=== PATIENT | male | born 1995 | race Two or more races ===

== ENCOUNTER 2016-10-09 05:26 | Emergency (ER) | payer SELFPAY ==
[~2016-10-09] VITALS: Ht 190.5 cm; Wt 115.0 kg
[2016-10-09 08:10] VITALS: BP 106/44
== END 2016-10-09 08:37 | disposition home or self-care (01) ==
LOC: ED 07:00
DX: S02.2XXA Fracture of nasal bones, initial encounter for closed fracture (principal); S09.8XXA Other specified injuries of head, initial encounter; S00.83XA Contusion of other part of head, initial encounter; F10.120 Alcohol abuse with intoxication, uncomplicated; Y04.0XXA Assault by unarmed brawl or fight, initial encounter; Y93.89 Activity, other specified; Y92.89 Other specified places as the place of occurrence of the external cause; Y99.8 Other external cause status
CPT/HCPCS: 70450; 70486; 72125; 99284